=== PATIENT | male | born 2000 | race Hispanic/Latino ===

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

== ENCOUNTER 2022-07-19 13:25 | Emergency (ER) | payer BC ==
[2022-07-19] MEDS ORDERED: Ketorolac Tromethamine 30 MG/ML VIAL ONE (14:44)
== END 2022-07-19 16:10 | disposition home or self-care (01) ==
LOC: ERS 13:25
DX: S20.211A Contusion of right front wall of thorax, initial encounter (principal); S60.221A Contusion of right hand, initial encounter; I10 Essential (primary) hypertension; Y04.2XXA Assault by strike against or bumped into by another person, initial encounter; Z79.899 Other long term (current) drug therapy
CPT/HCPCS: 96372; J1885

== ENCOUNTER 2022-08-23 20:23 | Emergency (ER) | payer BC | END 2022-08-23 21:34 | disposition home or self-care (01) | LOC: ERS 20:23 | DX: H10.9 Unspecified conjunctivitis (principal) | CPT/HCPCS: 99282 ==

== ENCOUNTER 2023-05-10 16:42 | Emergency (ER) | payer BC ==
[2023-05-10] MEDS ORDERED: Acetaminophen 500 MG TAB ONE (17:31)
[2023-05-10] MEDS ORDERED: Ibuprofen 200 MG TAB ONE (17:31)
== END 2023-05-10 17:40 | disposition home or self-care (01) ==
LOC: ERS 16:42
DX: B34.9 Viral infection, unspecified (principal); I10 Essential (primary) hypertension
CPT/HCPCS: 99283

== ENCOUNTER → 2024-02-01 | Emergency (ER) | payer BC ==
[2024-02-01 16:23] LABS: #Basophils 0.03 10x3/uL (0.0-0.2); %Basophils 0.2 % (0.0-1.0); %Eosinophils 0.6 % (0.0-10.0); %Monocytes 3.7 % (0.0-10.0); %Neutrophils 90.2 % (42.0-75.0); Hematocrit 46.9 % (42.0-52.0); Hemoglobin 16.2 g/dL (14.0-18.0); Mean Corpuscular HGB CONC 34.5 g/dL (32.0-36.0); Mean Corpuscular Hemoglobin 28.1 pg (27.0-31.0); Mean Corpuscular Volume 81.3 fL (78.0-98.0); Platelet Count 342 10x3/uL (130-400); RBC Distribution Width 12.7 % (11.5-14.5); Red Blood Cell (RBC) Count 5.77 mill/uL (4.70-6.10)
[2024-02-01 16:50] LABS: ALT (SGPT) 21 U/L (8-55); AST (SGOT) 25 U/L (5-34); Albumin 4.9 g/dL (3.5-5.0); Alkaline Phosphatase 73 U/L (40-110); Anion Gap 16 mmol/L (10-20); BUN (Urea Nitrogen) 17 mg/dL (8.9-20.6); Bilirubin, Total 0.9 mg/dL (0.2-1.2); Calc. Creatinine Clearance 0 mL/min (70-130); Calcium 10.2 mg/dL (7.8-10.44); Carbon Dioxide 25 mmol/L (22-29); Chloride 106 mmol/L (98-107); Estimated GFR 107; Globulin 3.8 g/dL (2.4-3.5); Glucose 107 mg/dL (70-105); Lipase 12 U/L (8-78); Potassium 4.1 mmol/L (3.5-5.1); Protein, Total 8.7 g/dL (6.0-8.3); Sodium 143 mmol/L (136-145)
[2024-02-01 19:02] LABS: Bacteria/HPF None Seen HPF (None Seen); Bilirubin Negative (Negative); Blood, Urine Negative (Negative); CAUTI Indications for Culture Dysuria,urgency,freq; Clarity Clear (Clear); Glucose, Urine (Dipstick) Normal (Negative); Ketone, Urine 60 mg/dL (Negative); Leukocyte Negative Leu/uL (Negative); Nitrite Negative (Negative); Protein, Urine (Dipstick) 50 mg/dL (Neg-Trace); RBC/HPF 0-3 HPF (0-3); Specific Gravity, Urine 1.035 (1.002-1.036); Squamous Epithelial None Seen HPF (0-3); Urobilinogen Normal mg/dL (Less than 2); WBC/HPF 0-3 HPF (0-3); pH, Urine 8.5 (5.0-9.0)
[2024-02-01 19:08] LABS: Urine Culture Reflex No No
== END ==
LOC: ERS 15:54
DX: Z53.21 Procedure and treatment not carried out due to patient leaving prior to being seen by health care provider (principal)
CPT/HCPCS: 36415; 80053; 81001; 83605; 83690; 85025